=== PATIENT | male | born 1975 | race Caucasian/White ===

== ENCOUNTER 2016-10-11 22:28 | Inpatient (IN) | payer BC ==
[~2016-10-11] VITALS: Ht 175.3 cm; Wt 64.9 kg
[~2016-10-11 22:28] MED LIST: ASPI-664 PO; ATOR40TA68 PO; CARV3.12 PO; CLOP75TA27 PO; FURO-110 PO; GLIP-95 PO; LANT3I SC; METF1000 PO
--- NOTE | 2016-10-12 02:25 | ERA ---
ER Documentation Chief Complaint Date/Time DATE: 10/12/16 TIME: 02:24 Chief Complaint Swelling Bilateral legs x1 wk HPI The patient is a 40-year-old male, presenting to the ER because of acute dyspnea on exertion, bilateral leg edema for 1 week, worse today. He had similar symptoms previously. He has not been taking his medication for the last 2 weeks. He denies fever, chills, neck pain, chest pain, abdominal pain, vomiting, dysuria, diarrhea. He smokes and drinks, denies illicit drug Past medical history: History of CHF, dyslipidemia, diabetes mellitus, hypertension Past surgical history: Stent PCI ROS All systems reviewed and are negative except as per history of present illness. Medications Home Meds Active Scripts Carvedilol* (Coreg*) 3.125 Mg Tablet, 3.125 MG PO BID, #60 TAB Prov:LUCIANA MARQUEZ MD 05/03/16 Furosemide* (Lasix*) 20 Mg Tablet, 20 MG PO DAILY, #30 TAB Prov:LUCIANA MARQUEZ MD 05/03/16 Reported Medications Atorvastatin* (Atorvastatin*) 40 Mg Tablet, 40 MG PO QHS, #30 TAB 04/19/16 Clopidogrel Bisulfate (Clopidogrel) 75 Mg Tablet, 75 MG PO DAILY, #30 TAB 04/19/16 Insulin Glargine* (Lantus*) 100 Unit/Ml Soln, 30 UNIT SC DAILY, #1 VIAL 04/19/16 Metformin Hcl* (Metformin Hcl*) 1,000 Mg Tablet, 1000 MG PO WITH BREAKFAST DINNE , #60 TAB 04/19/16 Glipizide* (Glipizide*) 10 Mg Tablet, 10 MG PO BID, TAB 04/19/16 Aspirin* (Aspirin* EC) 81 Mg Tablet.dr, 81 MG PO DAILY, TAB 04/19/16 Allergies Allergies: Coded Allergies: No Known Allergies (Verified Allergy, Mild, 05/02/16) PMhx/Soc History of Surgery: No Anesthesia Reaction: No Hx Neurological Disorder: No Hx Respiratory Disorders: No Hx Cardiac Disorders: Yes (HTN, CAD, DYSLIPIDEMIA) Hx Psychiatric Problems: No Hx Miscellaneous Medical Probl: No Hx Alcohol Use: No Hx Substance Use: No Hx Tobacco Use: Yes Physical Exam Vitals Vital Signs Date Time Temp Pulse Resp B/P Pulse Ox O2 Delivery O2 Flow Rate FiO2 10/11/16 23:11 98.5 104 18 145/96 99 Physical Exam Const: No acute distress. Head: Atraumatic. Eyes: Normal Conjunctiva. ENT: Normal External Ears, Nose and Mouth. Neck: Full range of motion. No meningismus. Resp: Bibasilar crackles Cardio: Regular rate and rhythm, no murmurs. Abd: Soft, non distended, normal bowel sounds, non tender. Skin: No petechiae or rashes. Back: No midline or flank tenderness. Ext: Bilateral leg edema, no calf tenderness Neur: Awake and alert. No focal deficit Psych: Normal Mood and Affect. Result Diagram: 10/12/16 0300 10/12/16 0300 Results 24 hrs Laboratory Tests Test 10/12/16 03:00 10/12/16 04:50 Activated Partial Thromboplast Time 29.4Sec Anion Gap 16 B-Type Natriuretic Peptide 3190PG/ML Basophils # 0.010^3/ul Basophils % 0.4% Blood Morphology Comment Blood Urea Nitrogen 26mg/dl Calcium Level 9.2mg/dl Carbon Dioxide Level 27mmol/L Chloride Level 99mmol/L Cholesterol Level 184mg/dl Cholesterol/HDL Ratio 4.0RATIO Creatinine 1.01mg/dl Eosinophils # 0.110^3/ul Eosinophils % 0.9% Glucose Level 514mg/dl HDL Cholesterol 45mg/dl Hematocrit 50.5% Hemoglobin 16.1g/dl Hemoglobin A1c % INR International Normalized Ratio 0.94 LDL Cholesterol, Calculated 107mg/dl Lymphocytes # 2.310^3/ul Lymphocytes % 24.8% Magnesium Level 1.8mg/dl Mean Corpuscular Hemoglobin 26.9pg Mean Corpuscular Hemoglobin Concent 31.9g/dl Mean Corpuscular Volume 84.6fl Mean Platelet Volume 10.6fl Monocytes # 0.810^3/ul Monocytes % 8.4% Neutrophils # 6.110^3/ul Neutrophils % 65.5% Nucleated Red Blood Cells # 0.010^3/ul Nucleated Red Blood Cells % 0.0/100WBC Platelet Count 49804^3/UL Potassium Level 4.7mmol/L Prothrombin Time 12.6Sec Prothrombin Time Ratio 1.0 Red Blood Count 5.9710^6/ul Red Cell Distribution Width 15.1% Sodium Level 137mmol/L Thyroid Stimulating Hormone (TSH) 1.850MIU/L Triglycerides Level 161mg/dl Troponin I 0.021ng/ml White Blood Count 9.310^3/ul Creatine Kinase 134IU/L Creatinine Kinase MB (Mass) 3.48ng/ml Procedures/[place] [id number] Radiology Main Line: [phone] DIAGNOSTIC IMAGING REPORT Patient: JORDAN TOLENTINO : 1975 Age: 40 Sex: M MR #: [id number] [facility] #: [id number] DOS: 10/12/16 0232 Ordering MD: NOLAN NOVA MD Location: E/R Room/Bed: PROCEDURE: CHEST - 1 VIEW CLINICAL INDICATION: 40-year-old male with shortness of breath. TECHNIQUE: A single frontal AP semi-erect view of the chest was performed portably. The images were reviewed on a PACS workstation. COMPARISON: Chest x-ray May 02, 2016. FINDINGS: The cardiomediastinal silhouette is mildly enlarged but without significant interval change. There is a shallow inspiration. There is mild elevation right hemidiaphragm. There is no evidence for an infiltrate. There is no evidence for congestive heart failure. There is no evidence for pneumothorax. The osseous structures are intact. IMPRESSION: 1. Cardiomegaly. 2. Mild elevation right hemidiaphragm. .Meet Benoit MD, MD Date Time Electronically viewed and signed by .Meet Benoit MD, on 10/12/2016 03:20 .M/ CC: NOLAN NOVA MD EKG: Read by emergency physician Rate/Rhythm: Normal Sinus Rhythm 93 beats/min QRS, ST, T-waves: No ST elevation, no T inversion, inferior Q waves Impression: Abnormal EKG MEDICAL MAKING DECISION: The patient is a 40-year-old male, presenting with acute CHF exacerbation and acute diabetic hyperglycemia due to medical noncompliance. He was treated with Lasix 40 mg IV, regular insulin 14 units subcutaneously. The differential diagnoses considered include but are not limited to HHS, DKA, dehydration, infection, electrolyte imbalance Critical Care: Time: 35 minutes excluding all billable procedures. Treatments/Evaluations: Close monitoring and treatment of unstable vital signs, cardiorespiratory, and neurologic status, while maintaining tight balance of fluid, respiratory, and cardiac interventions. Departure Diagnosis: Primary Impression: Acute exacerbation of CHF (congestive heart failure) Additional Impression: Diabetes mellitus with hyperglycemia Condition: Stable Comments I discussed the findings with the patient. I discussed the patient with the on- call hospitalist Dr. Barrera who was made aware of the lab, the treatment, the patient condition. The patient is admitted to telemetry unit NOLAN NOVA MD Oct 12, 2016 02:24
--- NOTE | 2016-10-12 03:21 | RADRPT ---
PROCEDURE: CHEST - 1 VIEW CLINICAL INDICATION: 40-year-old male with shortness of breath. TECHNIQUE: A single frontal AP semi-erect view of the chest was performed portably. The images we re reviewed on a PACS workstation. COMPARISON: Chest x-ray May 02, 2016. FINDINGS: The cardiomediastinal silhouette is mildly enlarged but without significant interval change. There is a shallow inspiration. There is mild elevation right hemidiaphragm. There is no evidence for an infiltrate. There is no evidence for congestive heart failure. There is no evidence for pneumothor ax. The osseous structures are intact. IMPRESSION: 1. Cardiomegaly. 2. Mild elevation right hemidiaphragm. .Meet Benoit MD, Date Time Electronically viewed and signed by .Meet Benoit MD, on 10/12/2016 03:20 .M/
[2016-10-12 03:45] LABS: INR 0.94; PROTIME 12.6 Sec (12.2-14.2)
[2016-10-12 03:46] LABS: BASOPHILS % 0.4 % (0.0-2.0); EOSINOPHILS # 0.1 10^3/ul (0.0-0.5); EOSINOPHILS % 0.9 % (0.0-7.0); HEMATOCRIT 50.5 % (42.0-52.0); HEMOGLOBIN 16.1 g/dl (14.0-18.0); LYMPHOCYTES # 2.3 10^3/ul (0.8-2.9); LYMPHOCYTES % 24.8 % (15.0-51.0); MEAN CORPUSCULAR HEMOGLOBIN 26.9 pg (29.0-33.0); MEAN CORPUSCULAR HGB CONC 31.9 g/dl (32.0-37.0); MEAN CORPUSCULAR VOLUME 84.6 fl (82.0-101.0); MEAN PLATELET VOLUME 10.6 fl (7.4-10.4); MONOCYTE # 0.8 10^3/ul (0.3-0.9); MONOCYTES % 8.4 % (0.0-11.0); NEUTROPHIL # 6.1 10^3/ul (1.6-7.5); NEUTROPHILS % 65.5 % (39.0-77.0); PARTIAL THROMBOPLASTIN TIME 29.4 Sec (25.0-35.0); PLATELET COUNT 210 10^3/UL (140-440); RED BLOOD COUNT 5.97 10^6/ul (4.70-6.10); RED CELL DISTRIBUTION WIDTH 15.1 % (11.5-14.5); UNCORRECTED WBC 9.3 10^3/ul (4.8-10.8); WHITE BLOOD COUNT 9.3 10^3/ul (4.8-10.8)
[2016-10-12 03:56] LABS: CONDITION 1; LH ANALYZER COMMENTS 1; SUSPECT 1
[2016-10-12 03:57] LABS: POTASSIUM 4.7 mmol/L (3.5-5.1)
[2016-10-12 04:00] LABS: CALCIUM 9.2 mg/dl (8.4-10.2); CREATININE 1.01 mg/dl (0.61-1.24)
[2016-10-12 04:13] LABS: TROPONIN-I 0.021 ng/ml (0.00-0.12)
--- NOTE | 2016-10-12 04:56 | HP ---
Date/Time of Note Date/Time of Note DATE: 10/12/16 TIME: 04:54 Assessment/Plan VTE Prophylaxis VTE Prophylaxis Intervention: heparin Assessment/Plan Assessment/Plan 40 yo male with a past medical history of CHF with diastolic dysfunction, Type II DM, essential hypertension, dyslipidemia, who presents with worsening shortness of breath, and lower extremity edema. 1. Shortness of breath 2/2 CHF exac - acute on chronic systolic dysfunction - will admit the patient to telemetry, consult cardio, obtain 2D ECHO, cycle cardiac markers, check TSH/Mag level, lasix, I/O's 2. Uncontrolled type II DM - continue with lantus, ISS, check hgba1c 3. Essential hypertension - continue with coreg/aspirin, hydralazine for SBP > 160 4. Dyslipidemia - check lipid panel, c/w statin 5. GI ppx - pepcid 6. DVT ppx - heparin answered all of his questions. as per clinical course. this history and physical took greater then 45 minutes to complete HPI/ROS Admit Date/Time Admit Date/Time 10/12/2016, 4:54 am Hx of Present Illness 40 yo male with a past medical history of CHF with diastolic dysfunction, Type II DM, essential hypertension, dyslipidemia, who presents with worsening shortness of breath, and lower extremity edema. the shortness of breath started 2 days ago, he can only walk about 1-2 blocks before becoming short of breath. associated with fatigue. Otherwise denies any chest pain, loss of consciousness , nausea/vomiting/diarrhea/constipation, headaches, urinary/bowel irregularities , fevers/chills or other constitutional symptoms. He also states that he ran out of his medications about 1 week ago. ECHO: 05/02/2016 Conclusions Normal left ventricular wall thickness. Mild enlargement of left ventricle cavity. Severe global left ventricular systolic dysfunction. Ejection fraction is visually estimated at 20 %. LV apical thrombus. Tissue Doppler/Mitral Doppler indices are consistent with restrictive physiology with markedly elevated left atrial pressure (Stage III-IV diastolic dysfunction). Mild enlargement of right ventricle. Moderate right ventricular hypokinesis. Flattened septum in systole and diastole consistent with increased RV pressure and volume overload. There is mild enlargement of right atrium. Mitral valve leaflets appear mildly thickened. Mild mitral annular calcification. Mild mitral valve regurgitation. Normal appearance of the tricuspid valve. Estimated peak PA systolic pressure 28 mmHg. There is trace tricuspid regurgitation. ROS 14 point review of systems completed, please refer to HPI for any positive findings PMH/Family/Social Past Medical History Medical History: congestive heart failure, diabetes, high cholesterol, hypertension Past Surgical History Past Surgical Hx: no surgical history Family History Significant Family History: no pertinent family hx Social History Alcohol Use: none Smoking Status: Current every day smoker (5 cig/day - 30 years) Drug Use: none Exam/Review of Systems Vital Signs Vitals Vital Signs Date Time Temp Pulse Resp B/P Pulse Ox O2 Delivery O2 Flow Rate FiO2 10/11/16 23:11 98.5 104 18 145/96 99 Exam Exam Gen Evelina: mild distress 09/21 SOB, AAOx4 HEENT: NC/AT, PERRLA, EOMI, no pharyngeal erythema, no tonsillar exudates, no lymphadenopathy, no JVD, no carotid bruits NECK: supple, no thyromegaly THORAX: symmetrical, no obvious deformities CV: S1S2, RRR, II/ systolic murmur best heard over mitral area Lungs: bibasilar crackles Abd: soft, NT/ND, +BS, no rebound, no guarding, neg HSM EXT: 1-2+ bilateral pitting edema, no ecchymosis, no clubbing, FROM Neuro: CN II-XII grossly intact, no focal deficits Psych: good mentation, alert and oriented, good mood and affect Skin: C/D/I Labs Result Diagram: 10/12/16 0300 10/12/16 0300 Medications Medications Current Medications Furosemide (Lasix) 40 mg ONCE ONCE IV Last administered on 10/12/16t 04:40; Admin Dose 40 MG; Start 10/12/16 at 05:00; Stop 10/12/16 at 05:01 Insulin Human Regular (Humulin R) 14 unit ONCE ONCE SC ; Start 10/12/16 at 05: 00; Stop 10/12/16 at 05:01; Status UNV Procedures Procedures CXR IMPRESSION: 1. Cardiomegaly. 2. Mild elevation right hemidiaphragm. SHIREEN MERDANO MD Oct 12, 2016 04:55
[2016-10-12] MEDS ORDERED: INSULIN REGULAR, HUMAN 100 UNIT/1 ML 3ML VIAL SC ONE (05:00)
[2016-10-12] MEDS ORDERED: DOCUSATE SODIUM 100 MG CAP PO PRN (05:00)
[2016-10-12] MEDS ORDERED: FUROSEMIDE 40 MG INJ IV ONE (05:00)
[2016-10-12] MEDS ORDERED: morphine 2 MG INJ IV PRN (05:00)
[2016-10-12] MEDS ORDERED: NACL 0.9% 3 ML SYG IV SCH (05:00)
[2016-10-12] MEDS ORDERED: ACETAMINOPHEN 325 MG TAB PO PRN (05:00)
[2016-10-12] MEDS ORDERED: NITROGLYCERIN (SL) 0.4 MG TAB SL PRN (05:00)
[2016-10-12] MEDS ORDERED: INSULIN REGULAR, HUMAN 100 UNIT/1 ML 3ML VIAL IV ONE (05:00)
[2016-10-12] MEDS ORDERED: ONDANSETRON 4 MG INJ IV PRN (05:00)
[2016-10-12] MEDS ORDERED: LORAZEPAM 2 MG INJ IV PRN (05:00)
[2016-10-12] MEDS ORDERED: GLUCOSE GEL 15 GRAM TUBE BUCCAL PRN (05:30)
[2016-10-12] MEDS ORDERED: GLUCOSE GEL 15 GRAM TUBE PO PRN ×2 (05:30)
[2016-10-12] MEDS ORDERED: GLUCAGON 1 MG INJ IM PRN (05:30)
[2016-10-12] MEDS ORDERED: DEXTROSE 50% 50 ML SYRINGE IV PRN ×2 (05:30)
[2016-10-12 08:39] LABS: MAGNESIUM 1.8 mg/dl (1.7-2.5)
[2016-10-12 08:50] LABS: CK-MB 3.48 ng/ml (0.0-2.4)
[2016-10-12 09:09] LABS: THYROID STIMULATING HORMONE 1.85 MIU/L (0.465-4.680)
[2016-10-12] MEDS: CLOPIDOGREL 75 MG TAB PO SCH (09:27)
[2016-10-12] MEDS: FAMOTIDINE 20 MG INJ IV SCH ×2 (09:27→20:37)
[2016-10-12] MEDS: ASPIRIN (EC) 81 MG TAB PO SCH (09:27)
[2016-10-12] MEDS: ENOXAPARIN 40 MG/0.4 ML SYG SC SCH (09:29)
[2016-10-12] MEDS: INSULIN ASPART [NOVOLOG] 3 ML PEN SC SCH ×7 (09:31→21:00)
[2016-10-12 12:07] LABS: CK-MB 2.22 ng/ml (0.0-2.4)
[2016-10-12 12:10] LABS: TROPONIN-I 0.021 ng/ml (0.00-0.12)
[2016-10-12 12:29] VITALS: TEMP 97.8
--- NOTE | 2016-10-12 14:04 | QN ---
Documentation Comment Observation Note: Time: 4 hours Family Hx: Negative for diabetes Evaluation: Multiple exams showed improving symptoms and no evidence of clinical decompensation. NILS WHITEHEAD MD Oct 12, 2016 14:04
[2016-10-12 17:40] VITALS: BP 123/86; PULSE 76; RESP 20
[2016-10-12 18:47] VITALS: PULSE 82
[2016-10-12 19:32] VITALS: BP 136/99; RESP 20
[2016-10-12 20:00] VITALS: Ht 175.3 cm; Wt 64.9 kg
[2016-10-12] MEDS ORDERED: INSULIN GLARGINE [LANtus] 3 ML PEN SC SCH (20:00)
[2016-10-12 20:06] VITALS: PULSE 85
[2016-10-12] MEDS: FUROSEMIDE 40 MG INJ IV SCH (20:37)
[2016-10-12] MEDS ORDERED: ATORVASTATIN 40 MG TAB PO SCH (21:00)
--- NOTE | 2016-10-12 23:01 | RADRPT ---
Echocardiogram Report Patient Name: JORDAN TOLENTINO Gender: Male Date: 1975 Study Date: 12-Oct-2016 Tar Heater: Lolis Giles RDCS Location: ER Ref. Physician: SHIREEN MEDRANO Quality: Good Procedures: Transthoracic echocardiogram with complete 2D, M-Mode, and doppler examination. Indications: Congestive Heart Failure. 2D/M Mode Doppler Measurement Value Normal Ranges Measurement Value Normal Ranges LVIDd 2D 6.0 3.5 - 5.6 cm AV Peak Paul 0.9 m/sec LVIDs 2D 5.2 2.1 - 4.1 cm AV Peak PG 3.0 mmHg LVPWd 2D 0.9 0.6 - 1.1 cm LVOT Peak Paul 0.6 m/sec IVSd 2D 1.0 0.6 - 1.1 cm LVOT Peak PG 1.4 mmHg AoR Diam 2D 2.6 2.0 - 3.7 cm MV E Peak Paul 1.2 m/sec EDV 2D 181.3 cm3 MV A Peak Paul 0.3 m/sec ESV 2D 144.5 cm3 MV E/A 4.5 LA Dimen 2D 3.4 2.3 - 4.0 cm MV Decel Time 155 msec MV Decel Caroline 8 MV E/A 4.5 TR Peak Paul 2.4 m/sec TR Peak PG 23.8 mmHg RVSP 27.0 mmHg Findings Left Ventricle: Normal left ventricular wall thickness. Mild enlargement of left ventricle cavity. Severe global left ventricular systolic dysfunction. Ejection fraction is visually estimated at 25 %. Right Ventricle: Mild enlargement of right ventricle. Left Atrium: The left atrium is normal in size. Right Atrium: The right atrium is normal in size. Mitral Valve: Mitral valve leaflets appear mildly thickened. Mild mitral annular calcification. Mild mitral valve regurgitation. Aortic Valve: Normal appearance of the aortic valve. No significant aortic stenosis or insufficiency. Tricuspid Valve: Estimated peak PA systolic pressure 27 mmHg. There is mild tricuspid regurgitation. Pulmonic Valve: Normal pulmonic valve appearance. Pericardium: Normal pericardium with no significant pericardial effusion. Aorta: Normal aortic root. IVC: Normal size and normal respiratory collapse consistent with normal right atrial pressure. Conclusions 1.Normal left ventricular wall thickness. Mild enlargement of left ventricle cavity. Severe global left ventricular systolic dysfunction. Ejection fraction is visually estimated at 25 %. 2.Mild enlargement of right ventricle. 3.Mitral valve leaflets appear mildly thickened. Mild mitral annular calcification. Mild mitral valve regurgitation. 4.Estimated peak PA systolic pressure 27 mmHg. There is mild tricuspid regurgitation. Electronically Signed By: Price Serrano 12-Oct-2016 23:00:58 -0800 Patient Name: JORDAN TOLENTINO Study Date: 12-Oct-2016 [id number]
[2016-10-12 23:37] VITALS: BP 132/84; RESP 20
[2016-10-13] VITALS (7 sets, daily range): BP systolic 115–129; BP diastolic 74–82; PULSE 71–76; RESP 18–19
--- NOTE | 2016-10-13 01:00 | CONS ---
DATE OF ADMISSION: 10/12/2016 DATE OF CONSULTATION: 10/12/2016 REASON FOR CONSULTATION: Congestive heart failure exacerbation. REQUESTING PHYSICIAN: Dr. Barrera from the hospitalist service. HISTORY OF PRESENT ILLNESS: Mr. Muñoz is a 40-year-old male with a history of systolic congestive heart failure, diabetes mellitus, hypertension, dyslipidemia, coronary artery disease, status post prior PTCA and stent placement to LAD and circumflex for ST elevation myocardial infarction in 2010, who initially presented with complaints of worsening shortness of breath and associated lower extre mity edema. Upon arrival in the emergency department, temperature 98.5, blood pressure 145/96, puls e 104, respiratory rate 18, saturating 99%. The patient's labs revealed a white count of 9.3, hemog lobin 6.1, a platelet count of 210. Sodium 137, potassium 4.7, creatinine 1.0, glucose of 514. BNP 3190. Troponin negative. LDL 107, HDL 45. TSH of 1.85, INR 0.94. Patient underwent a chest x-ra y revealing cardiomegaly with mild elevation of the right hemidiaphragm. The patient's electrocardi ogram revealed sinus rhythm at a rate of 93, normal axis, normal intervals, inferior Q-waves and ant eroseptal Q's. Patient was subsequently treated with Lasix 40 mg IV x1 and has been admitted to the floor for further evaluation and treatment. PAST MEDICAL HISTORY: As above in HPI. MEDICATIONS PRIOR TO ADMISSION: 1. Plavix 75 mg daily. 2. Aspirin 81 mg daily. 3. Lasix 20 mg daily. 4. Glipizide 10 mg p.o. b.i.d. 5. Metformin 1000 mg b.i.d. 6. Lantus 30 units subcu daily. 7. Carvedilol 3.125 mg p.o. b.i.d. MEDICATIONS CURRENTLY IN HOSPITAL: 1. Lipitor 40 mg at bedtime. 2. Lantus. 3. Lasix 40 mg IV b.i.d. 4. Pepcid 20 mg IV q.12. 5. Lovenox daily. 6. Aspirin 81 mg daily. 7. Carvedilol 3.125 mg p.o. b.i.d. 8. Plavix 75 mg daily. 9. Ativan p.r.n. 10. Zofran p.r.n. 11. Sublingual nitroglycerin. 12. Tylenol p.r.n. 13. Morphine p.r.n. ALLERGIES: NO KNOWN DRUG ALLERGIES. SOCIAL HISTORY: Positive tobacco, social ETOH, no illicit drug use. FAMILY HISTORY: No history of sudden cardiac or early CAD. REVIEW OF SYSTEMS: As above in HPI. CONSTITUTIONAL: No fevers, chills. PULMONARY: Shortness of breath. CARDIOVASCULAR: Congestive heart failure. GASTROINTESTINAL: No vomiting. GENITOURINARY: No hematuria. MUSCULOSKELETAL: Degenerative joint disease. PSYCHIATRIC: The patient denies depression. NEUROLOGIC: No CVA. ENDOCRINE: Diabetes mellitus. PHYSICAL EXAMINATION: VITAL SIGNS: Temperature 98.4, blood pressure 167/87, pulse 60, respiratory rate 18, saturating 99% . GENERAL: The patient is alert, awake and complaining of shortness of breath. NECK: JVP approximately 10 cm of water. CHEST: Bibasilar crackles. HEART: Regular rate and rhythm. Normal S1, S2. Laterally displaced PMI. ABDOMEN: Positive bowel sounds, soft. EXTREMITIES: 1+ edema. 1+ pulses bilaterally, posterior tibial. LABORATORIES: As above in HPI with most recently from today, white count 9.3, hemoglobin 6.1, plate let count 210. Sodium of 137, potassium 4.7, creatinine 1.0, BUN 26. Troponin negative x2. IMAGING STUDIES: As above in HPI. No further imaging studies for my review at this time. ECG: As above in HPI. No further electrocardiograms for my review at this time. IMPRESSION: 1. Congestive heart failure exacerbation, systolic, acute on chronic. 2. History of cardiomyopathy with severely depressed left ventricular ejection fraction, last being approximately 20% by echo 04/2016. 3. History of percutaneous transluminal coronary angioplasty and stent placement to LAD and circumf daryn with drug-eluting stents in 2010. 4. History of prior myocardial infarction in 2010. 5. Hypertension. 6. Dyslipidemia. 7. Diabetes mellitus with hyperglycemia. 8. Shortness breath secondary to #1. RECOMMENDATIONS: 1. At this time would maintain patient on telemetry monitoring to follow rhythm and rate closely. 2. Complete the patient's rule out for myocardial infarction. The patient's constellation of sympt oms is not due to any acute coronary syndrome such as an acute myocardial infarction. 3. Continue the patient's Lasix diuresis, following strict I's and O's to grade diuresis closely. 4. Continue the patient's current aspirin and Plavix for stent patency and prevent any further card iovascular events. 5. Continue the patient's current carvedilol and will additionally initiate the patient on PATRICK inhi bitor afterload reduction in the setting of severe cardiomyopathy. 6. Continue the patient's current statin therapy and follow the patient's blood sugars closely with adjustment of insulin as necessary. Thank you for allowing me to take part in the care of this patient. I will continue to follow along very closely with you with further recommendations to be made as the patient progresses through his inpatient hospital clinical course. Dictated By: WILEY LANE/MAYANK Conf#: [id number] DID#: [id number] CC: SHIREEN BARRERA MD;*EndCC*
[2016-10-13] MEDS ORDERED: ACCUCHECK AT 2AM (Patients on SS coverage) XX SCH (02:00)
[2016-10-13 06:13] LABS: ADD SCAN DIFF NO
[2016-10-13 06:33] LABS: POTASSIUM 3.9 mmol/L (3.5-5.1)
[2016-10-13 06:35] LABS: CREATININE 1.07 mg/dl (0.61-1.24)
[2016-10-13] MEDS: FUROSEMIDE 40 MG INJ IV SCH (06:35)
[2016-10-13 06:36] LABS: CALCIUM 8.9 mg/dl (8.4-10.2)
[2016-10-13 06:41] LABS: BASOPHIL # 0.1 10^3/ul (0.0-0.1); BASOPHILS % 0.7 % (0.0-2.0); EOSINOPHILS # 0.1 10^3/ul (0.0-0.5); EOSINOPHILS % 1.1 % (0.0-7.0); HEMATOCRIT 47.9 % (42.0-52.0); HEMOGLOBIN 15.6 g/dl (14.0-18.0); LYMPHOCYTES # 2.8 10^3/ul (0.8-2.9); LYMPHOCYTES % 26.2 % (15.0-51.0); MEAN CORPUSCULAR HEMOGLOBIN 27.1 pg (29.0-33.0); MEAN CORPUSCULAR HGB CONC 32.6 g/dl (32.0-37.0); MEAN CORPUSCULAR VOLUME 83.3 fl (82.0-101.0); MEAN PLATELET VOLUME 11.8 fl (7.4-10.4); MONOCYTE # 0.7 10^3/ul (0.3-0.9); MONOCYTES % 6.7 % (0.0-11.0); PLATELET COUNT 232 10^3/UL (140-415); RED BLOOD COUNT 5.75 10^6/ul (4.70-6.10); RED CELL DISTRIBUTION WIDTH 13.6 % (11.5-14.5); WHITE BLOOD COUNT 10.7 10^3/ul (4.8-10.8)
[2016-10-13] MEDS: INSULIN ASPART [NOVOLOG] 3 ML PEN SC SCH ×4 (07:52→13:18)
[2016-10-13 08:15] LABS: ALBUMIN 2.9 g/dl (3.3-4.9)
[2016-10-13 08:18] LABS: BILIRUBIN,INDIRECT 0.8 mg/dl (0-1.1); BILIRUBIN,TOTAL 0.8 mg/dl (0.2-1.3); TOTAL PROTEIN 5.6 g/dl (6.1-8.1)
[2016-10-13] MEDS: ENOXAPARIN 40 MG/0.4 ML SYG SC SCH (08:40)
[2016-10-13] MEDS: FAMOTIDINE 20 MG INJ IV SCH (08:41)
[2016-10-13] MEDS: CLOPIDOGREL 75 MG TAB PO SCH (08:41)
[2016-10-13] MEDS: ASPIRIN (EC) 81 MG TAB PO SCH (08:41)
[2016-10-13] MEDS ORDERED: BENAZEPRIL 10 MG TAB PO SCH (09:00)
--- NOTE | 2016-10-13 12:55 | CONS ---
Date/Time of Note Date/Time of Note DATE: 10/13/16 TIME: 12:52 Assessment/Plan Assessment/Plan Additional Assessment/Plan 1. Congestive heart failure exacerbation, systolic, acute on chronic- con't gentle diuresis. 2. History of cardiomyopathy with severely depressed left ventricular ejection fraction, last being approximately 20% by echo 04/2016- no CP now, will monitor clinically. 3. History of percutaneous transluminal coronary angioplasty and stent placement to LAD and circumflex with drug-eluting stents in 2010. 4. History of prior myocardial infarction in 2010. 5. Hypertension- well Rx, con't medical Rx. 6. Dyslipidemia. 7. Diabetes mellitus with hyperglycemia - on meds, keep euglycemic. 8. Shortness breath secondary to #1 - will follow, better now Consultation Date/Type/Reason Admit Date/Time Oct 12, 2016 at 04:50 Initial Consult Date 24 HR Interval Summary Free Text/Dictation No acute change - no ectopy on tele - con't gentle diuresis ROS: No fever, no chills, no nausea, no vomiting, no diarrhea/constipation No recent weight changes No chest pain, no PND, no orthopnea No dizziness, blurred vision No thirst, no heat or cold intolerance (better SOB) Exam/Review of Systems Vital Signs Vitals Vital Signs Date Time Temp Pulse Resp B/P Pulse Ox O2 Delivery O2 Flow Rate FiO2 10/13/16 12:07 76 10/13/16 11:21 98.3 18 115/74 99 10/13/16 06:37 Room Air Intake and Output 10/12/16 10/12/16 10/13/16 15:00 23:00 07:00 Intake Total 450 ml 600 ml Output Total 1000 ml Balance 450 ml -1000 ml 600 ml Exam General: WN/WD/NAD, AOx 2-3 HEENT: Unicetric/atraumatic/EOMI (follow commands) NECK: JVD elevated 9 cm , no thyromegaly Lymph: no lymphadenopathy HEART: regular with no S3, II/ systolic murmur at apex, PMU left LUNGS: Coarse sounds ABD: soft, NT, ND, +BS : Intact Neuro: non focal SKIN: chronic changes EXT: edema Results Result Diagram: 10/13/16 0555 10/13/16 0555 Results 24 hrs Laboratory Tests Test 10/12/16 13:56 10/12/16 18:09 10/12/16 20:05 10/12/16 22:46 Bedside Glucose 163 85 206 94 Test 10/13/16 00:30 10/13/16 05:55 10/13/16 07:39 10/13/16 11:40 Troponin I 0.014 0.019 Alanine Aminotransferase (ALT/SGPT) 45 Albumin 2.9 L Alkaline Phosphatase 136 H Anion Gap 12 Aspartate Amino Transf (AST/SGOT) 31 Basophils # 0.1 Basophils % 0.7 Blood Urea Nitrogen 30 H Calcium Level 8.9 Carbon Dioxide Level 30 Chloride Level 102 Creatinine 1.07 Direct Bilirubin 0.00 Eosinophils # 0.1 Eosinophils % 1.1 Glucose Level 173 # Hematocrit 47.9 Hemoglobin 15.6 Indirect Bilirubin 0.8 Lymphocytes # 2.8 Lymphocytes % 26.2 Magnesium Level 1.8 Mean Corpuscular Hemoglobin 27.1 L Mean Corpuscular Hemoglobin Concent 32.6 Mean Corpuscular Volume 83.3 Mean Platelet Volume 11.8 H Monocytes # 0.7 Monocytes % 6.7 Neutrophils # 7.0 Neutrophils % 65.0 Nucleated Red Blood Cells # 0.0 Nucleated Red Blood Cells % 0.0 Platelet Count 232 Potassium Level 3.9 Red Blood Count 5.75 Red Cell Distribution Width 13.6 Sodium Level 140 Total Bilirubin 0.8 Total Protein 5.6 L White Blood Count 10.7 Bedside Glucose 126 102 Medications Medications Current Medications Lorazepam (Ativan) 0.5 mg Q6H PRN IV ANXIETY; Start 10/12/16 at 05:00 Ondansetron HCl (Zofran Inj) 4 mg Q6H PRN IV NAUSEA AND/OR VOMITING; Start at 05:00 Nitroglycerin (Nitroglycerin (Sl Tab) 0.4 Mg) 1 tab Q5M PRN SL CHEST PAIN; Start 10/12/16 at 05:00 Acetaminophen (Tylenol Tab) 650 mg Q6H PRN PO PAIN LEVEL 1-3 OR FEVER; Start at 05:00 Morphine Sulfate (morphine) 2 mg Q4H PRN IV PAIN LEVEL 7-10; Start 10/12/16 at 05:00 Docusate Sodium (Colace) 100 mg Q12H PRN PO CONSTIPATION; Start 10/12/16 at 05: 00 Famotidine (Pepcid Iv) 20 mg Q12 IV Last administered on 10/13/16 08:41; Admin Dose 20 MG; Start 10/12/16 at 09:00 Enoxaparin Sodium (Lovenox) 40 mg DAILY SC Last administered on 10/13/16 08:40 ; Admin Dose 40 MG; Start 10/12/16 at 09:00 Insulin Glargine (Lantus) 30 unit DAILY@20 SC Last administered on 10/12/16 20 :15; Admin Dose 30 UNIT; Start 10/12/16 at 20:00 Aspirin (Halfprin) 81 mg DAILY PO Last administered on 10/13/16 08:41; Admin Dose 81 MG; Start 10/12/16 at 09:00 Atorvastatin Calcium (Lipitor) 40 mg QHS PO Last administered on 10/12/16 20: 37; Admin Dose 40 MG; Start 10/12/16 at 21:00 Carvedilol (Coreg) 3.125 mg BID PO Last administered on 10/13/16 08:41; Admin Dose 3.125 MG; Start 10/12/16 at 09:00 Clopidogrel Bisulfate (plaVIX) 75 mg DAILY PO Last administered on 10/13/16 08 :41; Admin Dose 75 MG; Start 10/12/16 at 09:00 Miscellaneous Information 1 ea NOTE XX ; Start 10/12/16 at 05:30 Glucose (Glutose) 15 gm Q15M PRN PO DECREASED GLUCOSE; Start 10/12/16 at 05:30 Glucose (Glutose) 22.5 gm Q15M PRN PO DECREASED GLUCOSE; Start 10/12/16 at 05: 30 Dextrose (D50w Syringe) 25 ml Q15M PRN IV DECREASED GLUCOSE; Start 10/12/16 at 05:30 Dextrose (D50w Syringe) 50 ml Q15M PRN IV DECREASED GLUCOSE; Start 10/12/16 at 05:30 Glucagon (Glucagen) 1 mg Q15M PRN IM DECREASED GLUCOSE; Start 10/12/16 at 05:30 Glucose (Glutose) 15 gm Q15M PRN BUCCAL DECREASED GLUCOSE; Start 10/12/16 at 05 :30 Diagnostic Test (Pha) (Accucheck) 1 ea 02 XX ; Start 10/13/16 at 02:00 Benazepril HCl (Lotensin) 10 mg BID PO Last administered on 10/13/16 08:41; Admin Dose 10 MG; Start 10/13/16 at 09:00 MARIE ALVAREZ MD Oct 13, 2016 12:55
[2016-10-13] MEDS ORDERED: BENA10TA48 PO (13:54)
[2016-10-13] MEDS ORDERED: NOVO3I SC (13:54)
[2016-10-13] MEDS ORDERED: LANT3I SC (14:12)
[2016-10-13] MEDS ORDERED: ATOR40TA68 PO (14:12)
[2016-10-13] MEDS ORDERED: CARV3.12 PO (14:13)
--- NOTE | 2016-10-13 18:28 | DS ---
DATE OF ADMISSION: 10/12/2016 DATE OF DISCHARGE: 10/13/2016 PRESENTING COMPLAINT: Shortness of breath and lower extremity edema. ADMISSION DIAGNOSES: 1. Shortness of breath secondary to congestive heart failure exacerbation. 1. Uncontrolled type 2 diabetes mellitus. 2. Essential hypertension. 3. Dyslipidemia. CONSULTS ON THE CASE: Dr. Price Serrano, Dr. Omi Cristobal for cardiology. INTERVENTIONS: He had a chest x-ray 10/12/2016 showed cardiomegaly, mild elevation of right hemidiaphragm. The patient had a 2D echo as well, 10/12/2016 , showed severe global left ventricular systolic dysfunction with EF of 25%, mild enlargement of left ventricular cavity, mild valvular deficits, and a peak PA systolic pressure of 27. Laboratory findings are consistent with hypochromia , mild hypoalbuminemia, mild CK-MB elevation that was not consistent and an elevated BNP of 3190. An initial serum glucose on admission of 514 that improved to 102 at the time of discharge. HOSPITAL COURSE: The patient was also seen by religious educator while in house. He was aggressively diuresed and, as of today, I have reviewed the patient, he is in stable condition. Her shortness of breath has resolved. Vital signs have improved. Blood sugar is controlled and, in my opinion, is stable for discharge once cleared by cardiology. FINAL DIAGNOSES: 1. 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 2. Poorly controlled diabetes mellitus, likely due to noncompliance with therapy. Improved in house control. 3. Coronary artery disease, status post angioplasty and stent placement in left anterior descending and circumflex with drug-eluting stents in 2010. 4. History of myocardial infarction in 2010. 5. Hypertension, controlled. 6. Dyslipidemia. 7. Methamphetamine abuse in the past. 8. Ongoing tobacco abuse, status post cessation counseling. 9. Noncompliance with therapy. DISCHARGE MEDICATIONS: 1. Benazepril 10 mg p.o. b.i.d. 2. NovoLog 10 units subq t.i.d. with meals. 3. Aspirin 81 mg daily. 4. Lipitor 40 mg p.o. at bedtime. 5. Coreg 3.125 b.i.d. 6. Plavix 75 mg p.o. daily. 7. Lasix 20 mg p.o. daily. 8. Lantus 30 units subq daily. His glipizide and metformin were stopped and switched to the NovoLog regimen. FOLLOWUP: Recommended followup with his primary care physician within 1 to 2 weeks to ensure continued resolution of symptoms and to notify him of changes of medication was made in house. DISCHARGE CONDITION: Stable. DIET: 1800 ADA. DISCHARGE TIME: >40MINS Dictated By: ROBERT PEREZ MD BA/NTS Conf#: [id number] DID#: [id number] CC: SHIREEN MEDRANO MD;*EndCC* MTDD
== END 2016-10-13 15:41 | disposition home or self-care (01) | DRG 293 ==
LOC: FTE 22:28 → TEL 10-12 04:50
PROVIDERS: ADMIT Student in an Organized Health Care Education/Training Program; ATTEND Student in an Organized Health Care Education/Training Program
DX: I50.23 Acute on chronic systolic (congestive) heart failure (principal); E11.65 Type 2 diabetes mellitus with hyperglycemia; I10 Essential (primary) hypertension; I25.2 Old myocardial infarction; E78.5 Hyperlipidemia, unspecified; I51.7 Cardiomegaly; I25.10 Atherosclerotic heart disease of native coronary artery without angina pectoris; Z91.19 Patient's noncompliance with other medical treatment and regimen; F17.200 Nicotine dependence, unspecified, uncomplicated; Z79.82 Long term (current) use of aspirin
CPT/HCPCS: 36415; 71010; 80048; 80061; 80076; 82550; 82553; 82962; 83036; 83735; 83880; 84443; 84484; 85025; 85610; 85730; 93005; 93306; 96372; 96374; 96375; J1650; J1815; J1940